=== PATIENT | female | born 1955 | race Caucasian/White ===

== ENCOUNTER 2023-04-12 13:19 | Observation (INO) ==
[2023-04-12] MEDS ORDERED: Albuterol/Ipratropium NEB.SOL (2.5/0.5 MG) 3 ML NEB.SOLN INH ONE (13:51)
[2023-04-12 14:18] LABS: Hematocrit 46.9 % (35-45); Hemoglobin 16.2 g/dL (11.5-14.3); Mean Corpuscular Hemoglobin 32.9 pg (27-33); Mean Corpuscular Hgb Conc 34.6 g/dL (31-36); Mean Corpuscular Volume 95.2 fL (80-97); Red Blood Count 4.92 10^6/uL (3.63-4.92); Red Cell Distribution Width 12.9 % (12-17)
[2023-04-12 14:30] LABS: Albumin 4.8 g/dL (3.2-5.2); CO2 Carbon Dioxide 24 mmol/L (22-32); Calcium 9.5 mg/dL (8.6-10.3); Chloride 104 mmol/L (101-111); Sodium 136 mmol/L (135-145)
[2023-04-12 14:36] LABS: ALT 15 U/L (7-52); Albumin/Globulin Ratio 1.7 (1-3); Alkaline Phosphatase 73 U/L (35-149); Blood Urea Nitrogen 12 mg/dL (6-24); C Reactive Protein 15.67 mg/L (<8.01); Creatinine, Serum 0.64 mg/dL (0.51-0.95); Globulin 2.9 g/dL (2-4); Glucose 116 mg/dL (70-100); Total Protein 7.7 g/dL (6.4-8.9); eGFR CKD-EPI 95.6 (>60)
[2023-04-12 14:43] LABS: ABS Basophils 0.1 10^3/uL (0.0-0.1); ABS Eosinophils 0.1 10^3/uL (0.0-0.5); ABS Lymphocytes 0.8 10^3/uL (1.0-4.8); ABS Monocytes 0.7 10^3/uL (0.0-0.9); ABS Neutrophils 9.4 10^3/uL (1.5-7.6); ABS Nucleated RBC 0.01 10^3/ul; Anion Gap 8 mmol/L (2-16); Eosinophil % 0.8 %; Mean Platelet Volume 7.6 fL (7.5-11.2); Nucleated Red Blood Cells % 0.1 /100 WBC (0.0-0.4); Platelet Count 157 10^3/uL (150-450)
[2023-04-12] MEDS ORDERED: Lidocaine 1% MPF 5 ML VIAL INJ ONE (14:46)
[2023-04-12] MEDS ORDERED: fentaNYL 100 mcg/2 ml 50 MCG/ML VIAL ONE (15:22)
[2023-04-12] MEDS: fentaNYL 100 mcg/2 ml 50 MCG/ML VIAL IV SLOW PU ONE ×2 (15:24→15:56)
[2023-04-12] MEDS ORDERED: fentaNYL 100 mcg/2 ml 50 MCG/ML VIAL IV SLOW PU ONE (16:45)
[2023-04-12] MEDS: Albuterol/Ipratropium NEB.SOL (2.5/0.5 MG) 3 ML NEB.SOLN INH SCH ×2 (17:18→21:36)
[2023-04-12] MEDS: Morphine 2 MG/ML SYRINGE IV PRN ×2 (18:15→21:49)
[2023-04-12] MEDS ORDERED: Albuterol/Ipratropium NEB.SOL (2.5/0.5 MG) 3 ML NEB.SOLN INH PRN (21:35)
[2023-04-12] MEDS: Heparin 5000 UNITS/ML 1 mL VIAL SUBCUT SCH (21:49)
[2023-04-12 22:22] LABS: Potassium Redraw 3.4 mmol/L (3.5-5.0)
[2023-04-13] MEDS: Albuterol/Ipratropium NEB.SOL (2.5/0.5 MG) 3 ML NEB.SOLN INH SCH ×2 (02:09→09:04)
[2023-04-13] MEDS: Morphine 2 MG/ML SYRINGE IV PRN (03:03)
[2023-04-13] MEDS ORDERED: Ondansetron 4 mg VIAL 2 MG/ML 2 ml VIAL IV PRN (03:11)
[2023-04-13] MEDS ORDERED: Prochlorperazine 5 mg/ml 2 ml VIAL (10 mg) IV PRN (03:11)
[2023-04-13] MEDS: Heparin 5000 UNITS/ML 1 mL VIAL SUBCUT SCH ×3 (06:18→20:39)
[2023-04-13] MEDS ORDERED: Albuterol/Ipratropium NEB.SOL (2.5/0.5 MG) 3 ML NEB.SOLN INH PRN (09:07)
[2023-04-13 09:09] LABS: ABS Eosinophils 0.1 10^3/uL (0.0-0.5); ABS Monocytes 0.6 10^3/uL (0.0-0.9); ABS Neutrophils 7.8 10^3/uL (1.5-7.6); ABS Nucleated RBC 0.03 10^3/ul; Eosinophil % 0.8 %; Hemoglobin 14.8 g/dL (11.5-14.3); Lymphocyte % 10.9 %; Mean Corpuscular Hemoglobin 32.9 pg (27-33); Mean Corpuscular Hgb Conc 34.4 g/dL (31-36); Mean Corpuscular Volume 95.6 fL (80-97); Mean Platelet Volume 7.6 fL (7.5-11.2); Nucleated Red Blood Cells % 0.3 /100 WBC (0.0-0.4); Platelet Count 164 10^3/uL (150-450); Red Cell Distribution Width 12.9 % (12-17); White Blood Count 9.6 10^3/uL (3.8-11.8)
[2023-04-13 09:39] LABS: Blood Urea Nitrogen 13 mg/dL (6-24); CO2 Carbon Dioxide 27 mmol/L (22-32); Chloride 96 mmol/L (101-111); Creatinine, Serum 0.53 mg/dL (0.51-0.95); Glucose 105 mg/dL (70-100); Sodium 131 mmol/L (135-145)
[2023-04-13 09:50] LABS: Anion Gap 8 mmol/L (2-16)
[2023-04-13 11:21] LABS: Potassium Redraw 3.4 mmol/L (3.5-5.0)
[2023-04-13] MEDS: Potassium Chlor 20 meq TAB.ER PO SCH ×2 (12:38→15:11)
[2023-04-13] MEDS: Azithromycin 500 mg/250 ml NS 500 MG/250 ML BAG IVPB SCH (12:39)
[2023-04-14] MEDS: Heparin 5000 UNITS/ML 1 mL VIAL SUBCUT SCH ×2 (06:09→12:19)
[2023-04-14 06:49] LABS: Calcium 8.8 mg/dL (8.6-10.3); Creatinine, Serum 0.56 mg/dL (0.51-0.95); Potassium 4.1 mmol/L (3.5-5.0); eGFR CKD-EPI 98.7 (>60)
[2023-04-14] MEDS ORDERED: Nicotine PATCH 21 MG/24 HR PATCH TRANSDERM SCH (08:00)
[2023-04-14] MEDS: Azithromycin 500 mg/250 ml NS 500 MG/250 ML BAG IVPB SCH (12:17)
[2023-04-14 13:47] VITALS: BP 116/69
== END 2023-04-14 14:30 | disposition home or self-care (01) ==
LOC: ED 13:19 → EDHOLD 13:19 → SUATTDRO 16:46 → MED 04-13 10:31
PROVIDERS: ADMIT Internal Medicine; ATTEND Hospitalist